=== PATIENT | female | born 1945 | race Caucasian/White ===

== ENCOUNTER 2016-12-15 07:35 | Day surgery (SDC) | payer MEDICARE, OTHER ==
[~2016-12-15 07:35] MED LIST: ACETAMINOPHEN 325 MG TABLET PO PRN; ACETYLCHOLINE CHLORIDE 20 DROP KIT IO PRN; BUPIVACAINE HCL/PF 30 ML VIAL IJ PRN; CYCLOPENTOLATE HCL 20 DROP BTL RIGHTEYE PRN; DEXTROSE 5%-0.5 NORMAL SALINE 1,000 ML IV PRN; EPINEPHrine 1 MG/ML AMPUL IO PRN; HYALURONATE SODIUM 0.4 ML DISP.SYRIN IO PRN; HYALURONATE SODIUM 0.85 ML DISP.SYRIN IO PRN; LIDOCAINE HCL/PF 200 MG/5 ML AMPUL TP PRN; LIDOCAINE HCL/PF 5 ML VIAL IO PRN; NORMAL SALINE 3 ML BOX IV PRN; TETRACAINE HCL 150 DROP BTL OP PRN
[2016-12-15] MEDS: PHENYLEPHRINE HCL 50 DROP BTL RIGHTEYE PRN ×3 (07:55→08:25)
[2016-12-15] MEDS: TROPICAMIDE 150 DROP BTL RIGHTEYE PRN ×3 (07:55→08:25)
[2016-12-15] MEDS ORDERED: DEXTROSE 5%-0.5 NORMAL SALINE 1,000 ML IV ONE (08:11)
[2016-12-15 10:20] VITALS: BP 145/70
== END 2016-12-15 07:36 | disposition home or self-care (01) ==
LOC: AMB 07:35
PROVIDERS: ATTEND Ophthalmology
PROC: 08RJ3JZ Replacement of Right Lens with Synthetic Substitute, Percutaneous Approach (ICD-10-PCS; principal; 2016-12-15 08:40)
DX: H26.8 Other specified cataract (principal); E78.5 Hyperlipidemia, unspecified; J45.909 Unspecified asthma, uncomplicated; Z68.32 Body mass index [BMI] 32.0-32.9, adult

== ENCOUNTER 2016-12-29 07:24 | Day surgery (SDC) | payer MEDICARE, OTHER ==
[~2016-12-29 07:24] MED LIST changes: +CYCLOPENTOLATE HCL 20 DROP BTL LEFTEYE PRN; -CYCLOPENTOLATE HCL 20 DROP BTL RIGHTEYE PRN
[2016-12-29] MEDS: PHENYLEPHRINE HCL 50 DROP BTL LEFTEYE PRN ×3 (07:47→08:10)
[2016-12-29] MEDS: TROPICAMIDE 150 DROP BTL LEFTEYE PRN ×3 (07:47→08:10)
[2016-12-29] MEDS ORDERED: DEXTROSE 5%-0.5 NORMAL SALINE 1,000 ML IV ONE (08:08)
[2016-12-29 10:26] VITALS: BP 149/72
== END 2016-12-29 07:25 | disposition home or self-care (01) ==
LOC: AMB 07:24
PROVIDERS: ATTEND Ophthalmology
PROC: 08RK3JZ Replacement of Left Lens with Synthetic Substitute, Percutaneous Approach (ICD-10-PCS; principal; 2016-12-29 08:40)
DX: H26.9 Unspecified cataract (principal); E78.5 Hyperlipidemia, unspecified; J45.909 Unspecified asthma, uncomplicated; Z68.32 Body mass index [BMI] 32.0-32.9, adult

== ENCOUNTER 2019-11-04 16:10 | Observation (INO) ==
[2019-11-04 16:44] LABS: Hemoglobin 13.8 gm/dL (12.5-16.0); Mean Cell Volume 87.7 fl (78-100); Mean Corpuscular Hemoglobin 28.8 pg (27-31); Mean Corpuscular Hgb Conc 32.9 g/dl (32-36); Mean Platelet Volume 9.3 fl (8-12.5); Platelet Count 346 K/mm3 (150-450); Red Blood Count 4.79 M/mm3 (4.2-5.4); Red Cell Distribution Width 12.5 % (11.5-14.0)
[2019-11-04 16:46] LABS: Total Cells Counted 100
[2019-11-04 17:03] LABS: ALT 32 U/L (19-67); AST 25 U/L (0-48); Albumin * 3.7 gm/dl (3.4-5.0); Alkaline Phosphatase * 78 U/L (50-170); Anion Gap 16.8 mmol/L (6.8-13.8); BNP * 689 pg/mL (5-325); BUN/Creatinine Ratio 14.6 (9.0-21.6); Bilirubin, Total 0.4 mg/dL (0.0-1.1); Blood Urea Nitrogen 20 mg/dL (3-23); Ca. Corrected For Albumin 8.7 mg/dL (8.4-10.2); Calcium * 8.8 mg/dL (7.9-10.9); Carbon Dioxide 23.5 mmol/L (24-32.6); Chloride 98 mmol/L (97-106); Glucose * 123 mg/dL (70-110); Potassium 3.3 mmol/L (3.4-4.6); Sodium 135 mmol/L (132-142); Total Protein 7.8 gm/dL (6.2-8.2); Troponin I Less than 0.017 ng/mL (0.00-0.10)
[2019-11-04 17:14] LABS: Atypical (Reactive) Lymph 1 % (0-2); Band 1 % (0-2.0); Lymphocyte 42 % (20-51); Monocyte 7 % (0-9); Neutrophil 49 % (42-75); Neutrophil # 2.9 K/mm3 (1.3-6.0)
[2019-11-04 17:18] LABS: Platelet Estimate Increased (NORMAL); Toxic Granulation Trace
[2019-11-04 17:19] LABS: RBC Morphology Normal (NORMAL)
[2019-11-04] MEDS ORDERED: NITROGLYCERIN 0.4 MG/TAB BTL SL ONE ×4 (17:39→17:50)
[2019-11-04] MEDS ORDERED: ASPIRIN 81 MG TAB.CHEW ONE (17:39)
[2019-11-04] MEDS ORDERED: ASPIRIN 81 MG TAB.CHEW PO ONE (17:43)
[2019-11-04] MEDS ORDERED: FUROSEMIDE 10 MG/ML VIAL IV ONE (18:05)
--- NOTE | 2019-11-04 18:20 | ERNOTE ---
Chest Pain/Cardiac HPI Date of Service: 11/04/19 Chief Complaint: Chest Pain Time Seen by Provider: 11/04/19 17:12 Source: patient Exam Limitations: no limitations Immunizations: IMMUNIZATION HX Immunizations Up to Date Yes History of Influenza Vaccine Yes Hx Pneumococcal Vaccination Yes Allergies/Adverse Reactions: Allergies No Known Allergies Allergy (Verified 11/04/19 15:26) Home Medications: HOME MEDICATIONS Potassium Citrate [Urocit-K] 20 meq PO DAILY 02/15/14 [Last Taken Unknown] Allopurinol [Zyloprim] 300 mg PO DAILY 12/09/16 [Last Taken Unknown] Aspirin 81 mg PO DAILY #90 tab.chew 10/27/19 [Last Taken Unknown] furosemide 40 mg tablet 40 mg PO DAILY PRN #60 tab 10/27/19 [Last Taken Unknown] lisinopril 2.5 mg tablet 2.5 mg PO DAILY 11/04/19 [Last Taken Unknown] Narrative: patient presents to the ED for SOB and CP from the office. She was recently seen and admitted for new onset CHF. She went to [facility] cardiology and has an appointment scheduled for Thursday for cardiac cath by report. She was in the office today and related increased SOB and chest pain so was sent here. She has noticed central CP that is worse with deep breathing throughout the day on and off today. Right now no pain. SOB with exertion. Has felt dizzy off and on. Central CP is pleuritic in nature. Legs still swollen. No specific DVT Sx. Some cough, no fever. Timing: intermittent Severity/Quality: moderate Location: central Chest Pain Radiation: no radiation Activities at Onset: none Modifying Factors - Improves: Present: nothing Modifying Factors - Worsens: Present: other - deep breathing Nitro Today/Relief: no nitro taken today Aspirin Treatment Today: no aspirin today Associated Symptoms: Absent: syncope, fever/chills, nausea, vomiting, abdominal pain Prior Chest Pain/Cardiac Workup: Denies: prior chest pain Prior Treatment: Reports: recently seen, recently hospitalized. Denies: current ly on antibiotics Review of Systems - Review of Systems Constitutional: Absent: fever EYE: Absent: eye pain ENT: Absent: sore throat Respiratory: Present: See HPI Cardiology: Present: See HPI Gastrointestinal/Abdominal: Absent: abdominal pain All Other Systems: All systems neg except as marked Medical History (Last Reviewed 11/04/19 @ 18:18 by Ten Moss MD) Heart failure with reduced ejection fraction (Acute) Asthma Onset Date: Unknown Bronchitis Onset Date: 04/2017 Hyperlipidemia Onset Date: Unknown Kidney stone Onset Date: Unknown Posterior right knee pain Onset Date: ~09/13/18 Surgical History: Surgical History (Last Reviewed 11/04/19 @ 18:18 by Ten Moss MD) H/O: hysterectomy Onset Date: Unknown History of appendectomy Onset Date: Unknown History of carpal tunnel release Onset Date: Unknown S/P arthroscopic surgery of right knee Onset Date: Unknown Family History: Family History (Last Reviewed 11/04/19 @ 18:18 by Ten Moss MD) Brother Cancer Father Unknown family medical history Mother Alive and well Social History: (Last Reviewed 11/04/19 @ 18:18 by Ten Moss MD) Social History: Marital status: / household members: none number of children: 3 current occupational status: other current occupation: Retired Highest education level completed: 12th grade, no diploma Service: No Tobacco: Smoking Status: Never smoker Alcohol: alcohol intake: former Substance Use: substance use type: does not use Dietary Habits: caffeine: No caffeine comment: former Physical Exam - Physical Exam General Appearance: Present: alert, no apparent distress Head Exam: Present: normal inspection, no evidence of injury Eye Exam: Normal inspection: bilateral, PERRL: bilateral Ears, Nose, Throat: Present: normal ENT inspection Neck: Present: normal inspection Respiratory: Present: no respiratory distress, normal breath sounds, no accessory muscle use, lungs clear Cardiovascular/Chest: Present: regular rate, rhythm, normal peripheral pulses Gastrointestinal/Abdominal: Present: normal bowel sounds, nontender, nondistended, soft Back Exam: Present: normal range of motion Extremity Exam: Present: pedal edema. Absent: calf tenderness Neurological Exam: Present: alert, no motor/sensory deficits Skin Exam: Present: normal color, warm/dry Progress - Results and Orders Patient's Lab Results:: I have reviewed the patient's lab results. - Vital Signs Patient's Vital Signs:: I have reviewed the patient's vital signs. Vital Signs: Vital Signs 11/04/19 16:21 11/04/19 16:37 11/04/19 16:53 Temperature 36.5 C Pulse Rate 93 93 85 Respiratory Rate 20 20 Blood Pressure 119/62 115/49 O2 Sat by Pulse Oximetry 97 93 11/04/19 17:23 11/04/19 17:38 11/04/19 17:45 Temperature Pulse Rate 90 100 102 H Respiratory Rate 18 17 15 Blood Pressure 129/45 151/58 H 118/68 O2 Sat by Pulse Oximetry 92 L 94 92 L 11/04/19 17:52 Temperature Pulse Rate 107 H Respiratory Rate 16 Blood Pressure 109/64 O2 Sat by Pulse Oximetry 94 - EKG EKG #1 EKG: NSR EKG read: Interp. by me EKG Comments: NSR rate 94. LBBB. THere are non-specific changes compared with old (LBBB is old) but no clear evidence of STEMI - X-Ray X-Ray #1 X-Ray: chest Interpretation: Interp. by me X-ray Comments: I personally reviewed images as well as official radiology report - CT/Ultrasound CT/Ultrasound Narrative: I personally reviewed the radiology report for CT chest. No PE noted, additional findings reviewed. - Progress/Reassessment Chief Complaint: Chest Pain Progress Note-Subjective: 11/04/19 19:38 Patient developed CP that was essentially resolved with NTG. ASA given. I did place her on NTG drip as well. I thought it would be prudent to have her at a facility with Cardiology. I called [facility] but they cannot accept her as the Covid Unit is full and they cannot accept a Covid patient at this time. Given this I spoke to Dr Gusman who will admit here as no beds available for transfer. Patient understands this and understands she will need admission for rule out. I discussed warning signs and reasons to return as well as the need for close f/u. Departure Clinical Impression: COVID-19 virus detected, Chest pain, SOB (shortness of breath), CHF (congestive heart failure) - Departure Disposition: Still a patient Condition: Fair Referrals: Swetha Bennett MD [Primary Care Provider] -
[2019-11-04] MEDS ORDERED: POTASSIUM CHLORIDE 20 MEQ TABLET.SA PO ONE (21:16)
[2019-11-04] MEDS ORDERED: AZITHROMYCIN 250 MG TABLET PO ONE (21:18)
[2019-11-04] MEDS ORDERED: FUROSEMIDE 40 MG TABLET PO PRN (21:22)
[2019-11-04] MEDS ORDERED: ACETAMINOPHEN 500 MG TABLET PO PRN (21:24)
[2019-11-04] MEDS ORDERED: ENOXAPARIN SODIUM 40 MG/0.4 ML SYRG SC SCH (21:30)
--- NOTE | 2019-11-04 22:02 | HP ---
Chief Complaint - Chief Complaint Date of Service: 11/04/19 Time of Service: 21:49 Chief Complaint: I had chest pressure earlier today with cough. History of Present Illness: 74-year-old female with past medical history of recently diagnosed CHF, nephrolithiasis, gout, chronic kidney disease stage III, morbid obesity, hypertension, was sent to the ER from her PCPs office earlier today due to shortness of breath and chest pain. Patient was recently hospitalized for decompensated CHF thought to be caused by an undetected FL and fluid overload. After treating the patient with diuretics she was discharged home with a consultation with a per diem interpreter. After the per diem interpreter evaluated the patient she was scheduled for a cardiac cath for further evaluation. This morning the patient was scheduled for hospital follow-up with her PCP and she was noted to be short of breath and complained of chest pain that was pressure like in nature. She said the pain he radiated to the right upper section of her thorax and intensified on deep inspiration. Once in the ER the patient underwent a chest x-ray which was negative for any acute findings as well as labs which demonstrated a mildly elevated d-dimer which prompted a CTA which is negative for PE. The CTA did however reveal groundglass opacities that was said to be due to either a viral or infectious process. Of note the patient was found to be positive for COVID-19 infection which might explain that finding on the CTA. She denies having any fever or chills and only reports a mild cough that she has for more than 2 months, it is possible that his cough is due to her CHF but it could also be due to the COVID-19. Therefore the patient was admitted to our SCU unit and was placed under airborne precautions for the treatment of her COVID-19 infection and chest pain. Cardiac troponins are negative however the patient continues to have an elevated BNP which is slightly greater than her previous from the last hospitalization. The patient was treated with aspirin a nd nitroglycerin which caused significant improvement in her chest pain. She reports that her shortness of breath has now resolved and she denies having any chest pain at the moment but we will keep her overnight for closer monitoring and treatment. Medical History (Last Reviewed 11/04/19 @ 18:18 by Ten Moss MD) Heart failure with reduced ejection fraction (Acute) Asthma Onset Date: Unknown Bronchitis Onset Date: 04/2017 Hyperlipidemia Onset Date: Unknown Kidney stone Onset Date: Unknown Posterior right knee pain Onset Date: ~09/13/18 Surgical History: Surgical History (Last Reviewed 11/04/19 @ 18:18 by Ten Moss MD) H/O: hysterectomy Onset Date: Unknown History of appendectomy Onset Date: Unknown History of carpal tunnel release Onset Date: Unknown S/P arthroscopic surgery of right knee Onset Date: Unknown Family History: Family History (Last Reviewed 11/04/19 @ 18:18 by Ten Moss MD) Brother Cancer Father Unknown family medical history Mother Alive and well Social History: (Last Reviewed 11/04/19 @ 18:18 by Ten Moss MD) Social History: Marital status: / household members: none number of children: 3 current occupational status: other current occupation: Retired Highest education level completed: 12th grade, no diploma Service: No Tobacco: Smoking Status: Never smoker Alcohol: alcohol intake: former Substance Use: substance use type: does not use Dietary Habits: caffeine: No caffeine comment: former Peds Patient Hx - Developmental: No Pertinent Hx Peds Patient Hx - Medical: No Pertinent Hx Peds Patient Hx - Cardiac/Respiratory: No Pertinent Hx Peds Patient Hx - Surgical: No Surgical History Patient History - Cancer: No Hx of Cancer Review Of Systems (GEN) - Review of Systems Generalized/Overall Review: Present: No Symptoms Reported EENTM: Present: No Symptoms Reported Respiratory: Present: Cough, Shortness of Breath Cardiac: Present: Chest Pain Abdominal: Present: No Symptoms Reported Genitourinary: Present: No Symptoms Reported Musculoskeletal: Present: No Symptoms Reported Neurological: Present: No Symptoms Reported Skin: Present: No Symptoms Reported Endocrine: Present: No Symptoms Reported Immunizations: IMMUNIZATION HX Immunizations Up to Date Yes History of Influenza Vaccine Yes Hx Pneumococcal Vaccination Yes Allergies/Adverse Reactions: Allergies Allergy/AdvReac Type Severity Reaction Status Date / Time No Known Allergies Allergy Verified 11/04/19 15:26 Home Medications: HOME MEDICATIONS Potassium Citrate [Urocit-K] 20 meq PO DAILY 02/15/14 [Last Taken Unknown] Allopurinol [Zyloprim] 300 mg PO DAILY 12/09/16 [Last Taken Unknown] Aspirin 81 mg PO DAILY #90 tab.chew 10/27/19 [Last Taken Unknown] furosemide 40 mg tablet 40 mg PO DAILY PRN #60 tab 10/27/19 [Last Taken Unknown] lisinopril 2.5 mg tablet 2.5 mg PO DAILY 11/04/19 [Last Taken Unknown] Exam - Exam Vital Signs: Vital Signs - Last Taken Temp 36.5 C 11/04/19 16:21 Pulse 88 11/04/19 19:11 Resp 18 11/04/19 19:11 BP 109/55 11/04/19 19:11 Pulse Ox 98 11/04/19 19:11 Constitutional: Present: Alert, Oriented x3, Cooperative, Well developed, Well nourished, No distress, Obese ENT Exam: Present: normal ENT inspection, hearing grossly normal, pharynx normal, TMs normal Eye Exam: bilateral eye: normal inspection, PERRL, EOMI Neck: Present: non-tender, full range of motion, supple, normal inspection, trachea midline Back Exam: Present: normal inspection, no CVA tenderness, no vertebral tenderness Breasts: Present: Exam deferred, Nontender Respiratory: Present: chest non-tender, lungs clear, normal breath sounds, no respiratory distress, no accessory muscle use Cardiovascular/Chest: Present: normal peripheral pulses, regular rate, rhythm, no chest tenderness, no edema, no gallop, no JVD, no murmur, no rub Peripheral Pulses: carotid (R): 3+, carotid (L): 3+, dorsalis-pedis (R): 3+, dorsalis-pedis (L): 3+ Abdomen: Present: Normal bowel sounds, soft, nontender, nondistended, no rebound tenderness, no hepatospenomegaly, no masses, obese /Rectal: Present: Exam deferred Extremity: Present: normal range of motion, non-tender, normal inspection, no pedal edema, no calf tenderness, normal capillary refill, pelvis stable Skin Exam: Present: normal color, warm/dry, no cyanosis Lymphatic: Present: no adenopathy Neurologic: Present: clerical order filler II-XII nml as tested, normal cerebellar test, no motor/sensory deficits, alert, normal mood/affect, oriented x 3 Appearance: Present: appropriate appearance, appropriate insight, neat, no memory impairment Eye contact: Present: cooperative, good eye contact, normal speech Thoughts: Present: normal thought pattern, no apparent hallucination Diagnostic Studies: Abnormal Lab Results 11/04/19 11/04/19 11/04/19 Range/Units 16:34 16:34 16:34 Platelet Estimate Increased H (NORMAL) D-Dimer 0.71 H (0.19-0.49) ug/mL Potassium 3.3 L (3.4-4.6) mmol/L Carbon Dioxide 23.5 L (24-32.6) mmol/L Anion Gap 16.8 H (6.8-13.8) mmol/L Est GFR (Non-Af Amer) 40 L D (60-130) mL/min Random Glucose 123 H (70-110) mg/dL B-Natriuretic Peptide 689 H (5-325) pg/mL SARS-CoV-2 (PCR) (ND) 11/04/19 Range/Units 17:32 Platelet Estimate (NORMAL) D-Dimer (0.19-0.49) ug/mL Potassium (3.4-4.6) mmol/L Carbon Dioxide (24-32.6) mmol/L Anion Gap (6.8-13.8) mmol/L Est GFR (Non-Af Amer) (60-130) mL/min Random Glucose (70-110) mg/dL B-Natriuretic Peptide (5-325) pg/mL SARS-CoV-2 (PCR) Detected H (ND) Laboratory Results WBC 6.0 K/mm3 (4.0-10.5) 11/04/19 16:34 RBC 4.79 M/mm3 (4.2-5.4) 11/04/19 16:34 Hgb 13.8 gm/dL (12.5-16.0) 11/04/19 16:34 Hct 42.0 % (37.0-47.0) 11/04/19 16:34 MCV 87.7 fl (78-100) 11/04/19 16:34 MCH 28.8 pg (27-31) 11/04/19 16:34 MCHC 32.9 g/dl (32-36) 11/04/19 16:34 RDW 12.5 % (11.5-14.0) 11/04/19 16:34 Plt Count 346 K/mm3 (150-450) 11/04/19 16:34 MPV 9.3 fl (8-12.5) 11/04/19 16:34 Neutrophils % (Manual) 49 % (42-75) 11/04/19 16:34 Band Neuts % (Manual) 1 % (0-2.0) 11/04/19 16:34 Lymphocytes % (Manual) 42 % (20-51) 11/04/19 16:34 Monocytes % (Manual) 7 % (0-9) 11/04/19 16:34 Neutrophils # (Manual) 2.9 K/mm3 (1.3-6.0) 11/04/19 16:34 Lymphocytes # (Manual) 2.5 k/mm3 (1.5-3.5) 11/04/19 16:34 Monocytes # (Manual) 0.4 k/mm3 (0.0-1.0) 11/04/19 16:34 Atypic/Reactive Lymphs 1 % (0-2) 11/04/19 16:34 Toxic Granulation Trace 11/04/19 16:34 Platelet Estimate Increased (NORMAL) H 11/04/19 16:34 RBC Morphology Normal (NORMAL) 11/04/19 16:34 D-Dimer 0.71 ug/mL (0.19-0.49) H 11/04/19 16:34 Sodium 135 mmol/L (132-142) 11/04/19 16:34 Plasma Sodium 135 mmol/L (130-142) 11/04/19 16:34 Potassium 3.3 mmol/L (3.4-4.6) L 11/04/19 16:34 Chloride 98 mmol/L (97-106) 11/04/19 16:34 Carbon Dioxide 23.5 mmol/L (24-32.6) L 11/04/19 16:34 Anion Gap 16.8 mmol/L (6.8-13.8) H 11/04/19 16:34 BUN 20 mg/dL (3-23) 11/04/19 16:34 Creatinine 1.37 mg/dL (0.4-1.4) 11/04/19 16:34 Est GFR (Non-Af Amer) 40 mL/min (60-130) L D 11/04/19 16:34 BUN/Creatinine Ratio 14.6 (9.0-21.6) 11/04/19 16:34 Random Glucose 123 mg/dL (70-110) H 11/04/19 16:34 Calcium 8.8 mg/dL (7.9-10.9) 11/04/19 16:34 Calcium Adj for Albumin 8.7 mg/dL (8.4-10.2) 11/04/19 16:34 Total Bilirubin 0.4 mg/dL (0.0-1.1) 11/04/19 16:34 AST 25 U/L (0-48) 11/04/19 16:34 ALT 32 U/L (19-67) 11/04/19 16:34 Alkaline Phosphatase 78 U/L (50-170) 11/04/19 16:34 Troponin I Less than 0.017 ng/mL (0.00-0.10) 11/04/19 16:34 B-Natriuretic Peptide 689 pg/mL (5-325) H 11/04/19 16:34 Total Protein 7.8 gm/dL (6.2-8.2) 11/04/19 16:34 Albumin 3.7 gm/dl (3.4-5.0) 11/04/19 16:34 SARS-CoV-2 (PCR) Detected (ND) H 11/04/19 17:32 Assessment/Plan - Narrative Narrative: Patient was evaluated and the medical chart was reviewed and decision to admit for COVID-19 pneumonia was made. Chest CTA demonstrated groundglass opacities of a viral or infectious etiology but was negative for PE. Cardiac troponins done on admission is also negative. Patient was administered aspirin and nitroglycerin and now reports resolution of her chest pain and shortness of breath. We will keep her in ICU and place her on telemetry monitoring. Patient was found to have mild hypokalemia therefore a dose of potassium chloride was administered, follow-up labs were ordered for tomorrow morning. We will treat the patient with IV azithromycin which is recommended for COVID-19 pneumonia. Presently she is saturating adequately on room air and does not present any fever. The patient appears comfortable and denies any other symptoms at the moment. - Assessment/Plan (1) SOB (shortness of breath) Problem: Resolved (2) COVID-19 virus detected Problem: Acute (3) Chest pain Problem: Acute (4) CHF (congestive heart failure) Problem: Chronic Qualifiers: Heart failure type: systolic Heart failure chronicity: chronic Qualified Code(s): I50.22 - Chronic systolic (congestive) heart failure (5) Heart failure with reduced ejection fraction Problem: Chronic (6) Hypertension Problem: Chronic (7) Left bundle branch block (LBBB) on electrocardiogram Problem: Chronic (8) Hypokalemia Problem: Acute
[2019-11-04] MEDS ORDERED: AZITHROMYCIN 250 MG TABLET ONE (23:23)
[2019-11-04] MEDS ORDERED: POTASSIUM CHLORIDE 20 MEQ TABLET.SA ONE (23:25)
[2019-11-05] MEDS ORDERED: PANTOPRAZOLE SODIUM 40 MG TABLET.EC PO SCH (07:00)
[2019-11-05 07:19] LABS: Hematocrit 40.6 % (37.0-47.0); Hemoglobin 13.3 gm/dL (12.5-16.0); Mean Cell Volume 88.1 fl (78-100); Mean Corpuscular Hemoglobin 28.9 pg (27-31); Mean Corpuscular Hgb Conc 32.8 g/dl (32-36); Neutrophil # 2.7 K/mm3 (1.3-6.0); Neutrophil % 49.3 % (42-75.0); Platelet Count 314 K/mm3 (150-450); Red Blood Count 4.61 M/mm3 (4.2-5.4); Red Cell Distribution Width 12.5 % (11.5-14.0); White Blood Count 5.4 K/mm3 (4.0-10.5)
[2019-11-05 07:34] LABS: Albumin * 3.4 gm/dl (3.4-5.0); Anion Gap 16.8 mmol/L (6.8-13.8); BUN/Creatinine Ratio 15.9 (9.0-21.6); Bilirubin, Total 0.4 mg/dL (0.0-1.1); Ca. Corrected For Albumin 8.8 mg/dL (8.4-10.2); Calcium * 8.6 mg/dL (7.9-10.9); Carbon Dioxide 26.9 mmol/L (24-32.6); Potassium 3.7 mmol/L (3.4-4.6); Total Protein 7.3 gm/dL (6.2-8.2)
[2019-11-05] MEDS ORDERED: ASPIRIN 81 MG TAB.CHEW PO SCH (09:00)
[2019-11-05] MEDS ORDERED: LISINOPRIL 2.5 MG TABLET PO SCH (09:00)
[2019-11-05] MEDS ORDERED: POTASSIUM CITRATE 10 MEQ TABLET PO SCH (09:00)
[2019-11-05] MEDS ORDERED: ALLOPURINOL 300 MG TABLET PO SCH (09:00)
[2019-11-05] MEDS ORDERED: AZITHROMYCIN 250 MG TABLET PO SCH (09:00)
[2019-11-05] MEDS ORDERED: POTASSIUM CHLORIDE 20 MEQ TABLET.SA PO SCH (10:15)
--- NOTE | 2019-11-05 15:19 | DS ---
(1) SOB (shortness of breath) Problem: Resolved (2) COVID-19 virus detected Problem: Acute (3) Chest pain Problem: Resolved Qualifiers: Chest pain type: chest pain on breathing Qualified Code(s): R07.1 - Chest pain on breathing (4) CHF (congestive heart failure) Problem: Chronic Qualifiers: Heart failure type: systolic Heart failure chronicity: chronic Qualified Code(s): I50.22 - Chronic systolic (congestive) heart failure (5) Heart failure with reduced ejection fraction Problem: Chronic (6) Hypertension Problem: Chronic (7) Left bundle branch block (LBBB) on electrocardiogram Problem: Chronic (8) Hypokalemia Problem: Acute Date of Discharge:: 11/05/19 Hospital Course: 74-year-old female was admitted for pleuritic chest pain, dyspnea on exertion, and COVID-19 pneumonia was evaluated at bedside and was found to be afebrile and in no acute distress. Patient has shown significant clinical improvement since arriving at our facility. She denies recurrence of her chest discomfort and said her breathing is much improved. When asked to describe her chest discomfort she describes it as sharp and worse on deep inspiration given the impression of a pleuritic chest pain. I believe the presentation of the patient's symptoms favors more a respiratory etiology rather than cardiac. Her cardiac troponin was negative and EKG was also negative for any acute changes. Patient was also found to have elevated d-dimer which is common in COVID-19 infection but as a precaution she underwent a CTA which was negative for PE. Incidentally she was found to have a thyroid goiter and thyroid ultrasound was recommended, they should be followed up by her PCP. Patient was recently diagnosed with CHF and was scheduled to undergo a cardiac catheterization for evaluation of her coronary arteries. The recent diagnosis of CHF would explain the elevated BNP on admission for that we will discharge the patient on p.o. Lasix at a higher dose. She denies any recurrence of chest pain since yesterday after being administered nitroglycerin in the ER. Nitroglycerin is known to decrease preload which in turn improves the patient's overload symptoms which would explain the favorable response to nitro. I will discharge her with additional doses of p.o. nitroglycerin to be taken on a as needed basis. I will also discharge her with additional days of IV azithromycin for the COVID-19. Patient was instructed to go until quarantine for 14 days given her diagnosis of COVID-19, she was encouraged to reschedule cardiac catheterization for evaluation of her heart disease. She is also instructed to follow-up with her PCP after she completes quarantine. Procedures Performed: none Results and Findings: Lab Pending Results 11/04/19 16:34: WBC 6.0, RBC 4.79, Hgb 13.8, Hct 42.0, MCV 87.7, MCH 28.8, MCHC 32.9, RDW 12.5, Plt Count 346, MPV 9.3, Neutrophils % (Manual) 49, Band Neuts % (Manual) 1, Lymphocytes % (Manual) 42, Monocytes % (Manual) 7, Neutrophils # (Manual) 2.9, Lymphocytes # (Manual) 2.5, Monocytes # (Manual) 0.4, Atypic/Reactive Lymphs 1, Toxic Granulation Trace, Platelet Estimate Increased H, RBC Morphology Normal 11/04/19 16:34: Sodium 135, Plasma Sodium 135, Potassium 3.3 L, Chloride 98, Carbon Dioxide 23.5 L, Anion Gap 16.8 H, BUN 20, Creatinine 1.37, Est GFR (Non- Af Amer) 40 L D, BUN/Creatinine Ratio 14.6, Random Glucose 123 H, Calcium 8.8, Calcium Adj for Albumin 8.7, Total Bilirubin 0.4, AST 25, ALT 32, Alkaline Phosphatase 78, Troponin I Less than 0.017, B-Natriuretic Peptide 689 H, Total Protein 7.8, Albumin 3.7 11/04/19 16:34: D-Dimer 0.71 H 11/04/19 17:32: SARS-CoV-2 (PCR) Detected H 11/05/19 07:15: WBC 5.4, RBC 4.61, Hgb 13.3, Hct 40.6, MCV 88.1, MCH 28.9, MCHC 32.8, RDW 12.5, Plt Count 314, MPV 9.0, Immature Gran % (Auto) 0.40, Immature Gran # (Auto) 0.02, Neutrophils % 49.3, Lymphocytes % 40.8, Monocytes % 8.9, Eosinophils % 0.4, Basophils % 0.2, Nucleated RBC % 0.0, Neutrophils # 2.7, Lymphocytes # 2.20, Monocytes # 0.5, Eosinophils # 0.0, Absolute Basophils 0.0 11/05/19 07:15: Sodium 138, Plasma Sodium 138, Potassium 3.7, Chloride 98, Carbon Dioxide 26.9, Anion Gap 16.8 H, BUN 21, Creatinine 1.32, Est GFR (Non-Af Amer) 42 L, BUN/Creatinine Ratio 15.9, Random Glucose 125 H, Calcium 8.6, C alcium Adj for Albumin 8.8, Total Bilirubin 0.4, AST 18, ALT 27, Alkaline Phosphatase 75, Total Protein 7.3, Albumin 3.4 Discharge Location: Home Disposition: Home self-care Condition: Fair Face to Face Encounter completed per [facility] Guidelines: No Discharge Activity: Activity as tolerated Discharge Diet: Low salt Problem Oriented Discharge Instructions to Patient/Family: Chest Wall Pain, [id number] Additional Patient Instructions (free text): You have to complete 14 days of quarantine due to your COVID-19 diagnosis. Prescriptions (Any new or edited meds): Furosemide [Lasix] 60 mg PO DAILY PRN #30 tab PRN Reason: Edema Transmission Status: Pending to [facility] Azithromycin [Zithromax] 250 mg PO DAILY #4 tab Transmission Status: Pending to [facility] Complete Home Medications List: Complete Home Medication List: Potassium Citrate [Urocit-K] 20 meq PO DAILY 02/15/14 Allopurinol [Zyloprim] 300 mg PO DAILY 12/09/16 Aspirin 81 mg PO DAILY #90 tab.chew 10/27/19 lisinopril 2.5 mg tablet 2.5 mg PO DAILY 11/04/19 Azithromycin [Zithromax] 250 mg PO DAILY #4 tab 11/05/19 Furosemide [Lasix] 60 mg PO DAILY PRN #30 tab 11/05/19 Nitroglycerin 0.4 mg SUBLINGUAL Q5M PRN #60 tab.subl 11/05/19 Forms: COVID-What is Self Isolation?, COVID-Isolation/Return to Work
[2019-11-05 16:13] VITALS: BP 123/61
== END 2019-11-05 16:40 | disposition home or self-care (01) ==
LOC: ER 16:10 → SCU 16:10
PROVIDERS: ADMIT Family Medicine; ATTEND Family Medicine
DX: R07.1 Chest pain on breathing; E66.01 Morbid (severe) obesity due to excess calories; E87.6 Hypokalemia; U07.1 COVID-19; I44.7 Left bundle-branch block, unspecified; I50.22 Chronic systolic (congestive) heart failure; R06.02 Shortness of breath; I11.0 Hypertensive heart disease with heart failure
CPT/HCPCS: 36415; 71010; 71045; 71275; 80053; 83519; 83880; 84484; 85025; 85379; 93005; 96374; 99285; C9803; G0378; Q9967